=== PATIENT | male | born 1980 | race Caucasian/White ===

== ENCOUNTER 2019-12-31 23:29 | Emergency (ER) | payer SELFPAY ==
[2019-12-31 23:44] VITALS: TEMP 98.9; BMI 37.6
[2020-01-01] MEDS ORDERED: levETIRAcetam 500 MG TABLET (FP) PO ONE ×2 (00:35→00:49)
[2020-01-01 01:24] VITALS: BP 165/99; PULSE 79
== END 2020-01-01 01:37 | disposition home or self-care (01) ==
LOC: JER 23:29
DX: R56.9 Unspecified convulsions (principal)
CPT/HCPCS: 82962; 99284-25